=== PATIENT | male | born 1990 ===

== ENCOUNTER 2017-01-15 16:04 | Emergency (ER) | payer OTHER ==
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
--- NOTE | 2017-01-15 18:24 | CT ---
PROCEDURE: CT ORBITS WITHOUT CONTRAST. HISTORY: injury COMPARISON: None available. TECHNIQUE: Axial CT images of the orbits were obtained. Coronal and sagittal reformats were generated. Radiation dose: Total exam DLP = 538 mGy-cm. FINDINGS: RIGHT ORBIT: RIGHT BONY ORBIT: Normal. RIGHT INTRAORBITAL STRUCTURES: Globe: Normal. Extraocular muscles: Normal. Post septal space: Normal. Optic Nerve: Normal. Lacrimal Apparatus: Normal. RIGHT PRESEPTAL SOFT TISSUES: Normal. LEFT ORBIT: LEFT BONY ORBIT: Normal. LEFT INTRAORBITAL STRUCTURES: Globe: Normal. Extraocular muscles: Normal. Post septal space: Normal Optic Nerve: Normal. . Lacrimal Apparatus: Normal. LEFT PRESEPTAL SOFT TISSUES: Normal. OTHER: None. IMPRESSION: Unremarkable non contrast enhanced CT of the orbits.
[2017-01-15 19:00] VITALS: BP 124/70; PULSE 78; RESP 17; TEMP 98.2
[2017-01-15 19:57] VITALS: O2SAT 97
== END 2017-01-15 19:00 | disposition home or self-care (01) ==
LOC: C.ER 16:04
DX: S05.11XA Contusion of eyeball and orbital tissues, right eye, initial encounter (principal); Y08.89XA Assault by other specified means, initial encounter; H11.31 Conjunctival hemorrhage, right eye